=== PATIENT | male | born 1950 | race Caucasian/White ===

== ENCOUNTER 2018-01-23 14:33 | Emergency (ER) | payer MEDICARE, BC ==
[2018-01-23 15:00] VITALS: BP 118/78
--- NOTE | 2018-01-23 15:14 | UC ---
Elbow Pain - HPI Summary HPI Summary: Pt present with c/o right elbow pain, swelling and erythema. Pt states he has been picking corn and doing repetitive motions for long period of time. Pt is scheduled to have carpal tunnel surgery on 01/26/18 right hand - History of Current Complaint Chief Complaint: UCUpperExtremity Stated Complaint: RT ELBOW COMPLAINT Time Seen by Provider: 01/23/18 15:08 Hx Obtained From: Patient Onset/Duration: Weeks, Still Present, Worse Since - onset Severity Initially: Mild Severity Currently: Moderate Pain Intensity: 0 Location Of Pain: Is Discrete @ - right elbow and erythema extending to right anterior upper arm Character: Dull, Aching, Stiffness Aggravating Factor(s): Movement Alleviating Factor(s): Rest Associated Signs And Symptoms: Positive: Swelling, Redness - Allergies/Home Medications Allergies/Adverse Reactions: Allergies Allergy/AdvReac Type Severity Reaction Status Date / Time No Known Allergies Allergy Verified 01/23/18 15:00 Home Medications: Home Medications Finasteride TAB* [Proscar TAB*] 5 mg PO DAILY 01/23/18 [History Confirmed ] Flurbiprofen 100 mg PO DAILY 01/23/18 [History Confirmed 01/23/18] Gabapentin CAP(*) [Neurontin 300 CAP(*)] 300 mg PO TID 01/23/18 [History Confirmed 01/23/18] Hydrochlorothiazide TAB* [Hydrodiuril TAB*] 25 mg PO DAILY 01/23/18 [History Confirmed 01/23/18] Losartan TAB* [Cozaar TAB*] 25 mg PO DAILY 01/23/18 [History Confirmed 01/23/18] Tamsulosin CAP* [Flomax CAP*] 0.4 mg PO DAILY 01/23/18 [History Confirmed ] PMH/Surg Hx/FS Hx/Imm Hx Previously Healthy: Yes Endocrine History: Dyslipidemia Cardiovascular History: Hypertension - Surgical History Surgical History: Yes Surgery Procedure, Year, and Place: L carpel tunnel, neck, umbilical hernia - Family History Known Family History: Positive: Cardiac Disease - Social History Occupation: Employed Full-time Lives: With Family Alcohol Use: Daily Substance Use Type: None Smoking Status (MU): Former Smoker Type: Cigarettes Length of Time of Smoking/Using Tobacco: 20 yrs When Did the Patient Quit Smoking/Using Tobacco: 1988 Review of Systems Constitutional: Negative Skin: Other - erythema Eyes: Negative ENT: Negative Respiratory: Negative Cardiovascular: Negative Gastrointestinal: Negative Genitourinary: Negative Motor: Negative, Other - pain with Neurovascular: Negative Musculoskeletal: Arthralgia, Edema - right elbow, Myalgia Neurological: Negative Psychological: Negative Is Patient Immunocompromised?: No All Other Systems Reviewed And Are Negative: Yes Physical Exam Triage Information Reviewed: Yes Appearance: Well-Appearing Vital Signs: Initial Vital Signs Temp 98.6 F 01/23/18 14:47 Pulse 93 01/23/18 14:47 Resp 16 01/23/18 14:47 BP 118/78 01/23/18 14:47 Pulse Ox 96 01/23/18 14:47 Vital Signs Reviewed: Yes Eye Exam: Normal ENT Exam: Normal Dental Exam: Normal Neck exam: Normal Respiratory: Positive: No respiratory distress Musculoskeletal: Positive: ROM Intact, Edema @ - right elobw Neurological Exam: Normal Psychological Exam: Normal Skin Exam: Other - erythema, right elbow ~ 7 cm in diameter. c/o mild tenderness Elbow Pain Course/Dx - Differential Dx/Diagnosis Differential Diagnosis/HQI/PQRI: Bursitis, Cellulitis Provider Diagnoses: bursitis. cellulitis Discharge - Sign-Out/Discharge Documenting (check all that apply): Patient Departure - Discharge Plan Condition: Stable Disposition: HOME Prescriptions: Dicloxacillin CAP* [Dynapen CAP*] 500 mg PO Q6H #28 cap Patient Education Materials: Elbow Bursitis (ED), Ice Pack Application (ED) Referrals: Gerald Feliciano MD [Primary Care Provider] - If Needed Additional Instructions: Please call your orthopedic provider regarding your visit today. - Billing Disposition and Condition Condition: STABLE Disposition: Home Attestation Statement User Type: Provider - I was available for consult. This patient was seen by the HOWIE. The patient was not presented to, seen by, or examined by me. -Jonah
== END 2018-01-23 15:36 | disposition home or self-care (01) ==
LOC: UCCORT 14:33
DX: M71.9 Bursopathy, unspecified (principal); L03.113 Cellulitis of right upper limb; I10 Essential (primary) hypertension; Z79.899 Other long term (current) drug therapy; Z87.891 Personal history of nicotine dependence
CPT/HCPCS: 99202; G0463